=== PATIENT | female | born 1985 | race African-American/Black ===

== ENCOUNTER → 2018-02-15 | Outpatient (CLI) | payer OTHER ==
--- NOTE | 2018-02-15 12:08 | RAD ---
History: Mid to low back pain Study: Lumbar spine two views Findings: AP and lateral views the lumbar spine demonstrate normal alignment and disc spacing. No fra cture or bony destructive process is identified. Impression: Normal lumbar spine.
--- NOTE | 2018-02-15 17:00 | RAD ---
Exam: Thoracic spine AP and lateral views History: 32-year-old female with back pain. Comparison: None Findings: Very mild levo scoliotic curvature of the mid thoracic spine is present. However on the lat eral view, there is no evidence of vertebral body offset. Thoracic disc spaces are maintained, as are the vertebral body heights. No acute bony abnormality or significant degenerative change is seen on this exam. Impression: Minimal levoscoliotic curvature of the mid thoracic spine. Otherwise negative exam. Reported By:
== END ==
LOC: LAB 09:38
PROVIDERS: ATTEND Nurse Practitioner Family
DX: M54.5 Low back pain (principal); M54.6 Pain in thoracic spine
CPT/HCPCS: 72072; 72100

== ENCOUNTER → 2018-02-18 | Outpatient (CLI) | payer OTHER ==
[2018-02-18 12:12] LABS: BASOPHILS # (AUTO) 0.1 X10^3/uL (0.0-0.1); BASOPHILS % (AUTO) 1.6 % (0.2-1.0); EOSINOPHILS # (AUTO) 0.1 x10^3/uL (0.0-0.2); HEMOGLOBIN 13.2 g/dL (12.0-16.0); LYMPHOCYTES % (AUTO) 29.7 % (21.0-51.0); MEAN CORPUSCULAR HEMOGLOBIN 29.6 pg (27.0-34.0); MEAN CORPUSCULAR HGB CONC 33.8 g/dL (33.0-35.0); MEAN CORPUSCULAR VOLUME 87.7 fL (80.0-100.0); MONOCYTES # (AUTO) 0.6 x10^3/uL (0.3-0.8); MONOCYTES % (AUTO) 8.5 % (0.0-13.0); NEUTROPHILS % (AUTO) 59.2 % (42.0-75.0); PLATELET COUNT 306 X10^3/uL (150.0-450.0); RED BLOOD COUNT 4.45 X10^6/uL (3.5-5.4); RED CELL DISTRIBUTION WIDTH 13.2 % (11.6-16.5); WHITE BLOOD COUNT 6.7 X10^3/uL (3.6-10.0)
[2018-02-18 12:16] LABS: ALANINE AMINOTRANSFERASE 23 Units/L (12-78); ALKALINE PHOSPHATASE 116 Units/L (46-116); ASPARTATE AMINO TRANSFERASE 10 Units/L (15-37); BLOOD UREA NITROGEN 11 mg/dL (7-18); CALCIUM 8.6 mg/dL (8.5-10.1); CARBON DIOXIDE 29.3 mmol/L (21-32); CHLORIDE 107 mmol/L (98-107); CREATININE 0.78 mg/dL (0.55-1.02); SODIUM 144 mmol/L (136-145); TOTAL PROTEIN 7.8 g/dL (6.4-8.2); eGFR BLACK RACES > 60 (>60); eGFR NON BLACK RACES > 60 (>60)
[2018-02-18 12:58] LABS: ERYTHROCYTE SEDIMENTATION RATE 8 MM/HOUR (0-20)
== END ==
LOC: LAB 11:44
PROVIDERS: ATTEND Nurse Practitioner Family
DX: M54.5 Low back pain (principal); M54.6 Pain in thoracic spine
CPT/HCPCS: 36415; 80053; 85025; 85652; 86140

== ENCOUNTER → 2018-02-28 | Outpatient (CLI) | payer OTHER ==
--- NOTE | 2018-03-01 10:10 | RAD ---
History: Fall and hit right-sided head Study: Skull series Findings: Multiple views of the skull demonstrates normal size and bony density. No fracture or intra cranial calcifications are seen. Impression: Normal skull. Reported By:
== END ==
LOC: RAD 17:50
PROVIDERS: ATTEND Nurse Practitioner Family
DX: S09.90XA Unspecified injury of head, initial encounter (principal); X58.XXXA Exposure to other specified factors, initial encounter
CPT/HCPCS: 70260

== ENCOUNTER → 2018-03-02 | Outpatient (CLI) | payer OTHER ==
--- NOTE | 2018-03-02 10:25 | RAD ---
Examination: X-rays of the cervical spine. Clinical History: Neck pain after falling in tub 2 weeks ago. Technique: Three views of the cervical spine were obtained. Comparison: None available. Findings: There is loss of the normal cervical lordosis. The intervertebral disc spaces are well maintained. No arthropathy is noted. No acute fracture, dislocation or destructive bony lesion is noted. No soft tissue abnormality is noted. Impression: 1. No acute fracture or dislocation. 2. Loss of the normal cervical lordosis. Reported By:
== END ==
LOC: RAD 08:09
PROVIDERS: ATTEND Nurse Practitioner Family
DX: M54.2 Cervicalgia (principal)
CPT/HCPCS: 72040

== ENCOUNTER → 2018-03-08 | Outpatient (CLI) | payer OTHER ==
--- NOTE | 2018-03-08 13:38 | CT ---
HISTORY: Headache status post fall. Study: CT brain without contrast Comparison: None available. Technique: Multiple axial images of the brain were obtained from the skull base to the vertex without administra tion of IV contrast. Dose reduction techniques including Automated Exposure Control (AEC) and adjust ment of mA and kV were utilized. Findings: No acute intraparenchymal hemorrhage or mass can be identified. No extra-axial fluid collections are seen. No alteration in the attenuation of the brain parenchyma can be identified to suggest acute o r subacute ischemic change. The ventricular system is symmetric and nondilated. The extracranial st ructures are grossly unremarkable. IMPRESSION: No acute intracranial pathology. Reported By:
== END ==
LOC: RAD 12:42
PROVIDERS: ATTEND Nurse Practitioner Family
DX: M54.2 Cervicalgia (principal); S09.90XA Unspecified injury of head, initial encounter; X58.XXXA Exposure to other specified factors, initial encounter
CPT/HCPCS: 70450

== ENCOUNTER → 2018-03-17 | Outpatient (CLI) | payer OTHER ==
[2018-03-17 11:03] LABS: SERUM PREGNANCY TEST, QUAL NEGATIVE <10 mIU/mL
== END ==
LOC: LAB 07:58
PROVIDERS: ATTEND Nurse Practitioner Family
DX: N92.5 Other specified irregular menstruation (principal)
CPT/HCPCS: 36415; 82627; 82670; 84144; 84270; 84402; 84403; 84703

== ENCOUNTER 2018-04-04 12:12 | Emergency (ER) | payer OTHER ==
[2018-04-04 12:24] VITALS: BP 121/63; BMI 24.7
--- NOTE | 2018-04-04 12:39 | DR.CP ---
HPI - Time Seen Time seen: 12:25 - PCP Primary Care Physician: ED REBOLLEDO - HPI Comment HPI Comment: PAIN WORSE TODAY. SEND TO ED FROM PCP OFFICE. DENIES FEVER. - Complaint Chief Complaint Doctor Comments: ABDOMINAL PAIN, CHEST PAIN TIMES Chief Complaint:: PT C/O LASTNIGHT I STARTED HAVING BAD CHEST PAINS AND THAT SHE WENT TO SEE LESA MCCORD TODAY AND SHE TOLD ME TO COME TO THE ER,,,BR Self Treatment fo Chief Complaint: NONE - Reviewed Nurses Notes Review: Yes - Source History Provided: Patient - Mode of Arrival Mode of Arrival: Ambulatory - Timing Onset of Chief Complaint: 04/03/18 Came on: Suddenly - Duration Duration: Constant Duration: Days - Location Location of Chest Pain: Chest Chest Pain Radiation Location: Left Arm - Context Onset: At rest Cardiac Risk Factors: None PE Risk Factors: None History of: None Prehospital Care: None - Quality Quality: Sharp, Heavy - Severity Severity: Moderate - Modifying Factors Worsens: Coughing, Movement - Associated Signs and Symptoms Associated Signs and Symptoms: None PMH - PMH Past Medical History: No Past Surgical History: Yes Past Surgical History Comment: ,,, - Family History History of Family Medical Conditions: No - Social History Does patient currently use any type of tobacco product: No Have you used tobacco products in the last 12 months: No Type of Tobacco Use: None Does any household member use tobacco: No Alcohol Use: None Do you use any recreational Drugs:: No Lives With: Family Lives Where: Home - infectious screening In the last 2 months have you had wt loss of >10#?: NO Have you had fever, night sweats or hemotysis?: No Have you traveled outside the country in the last 6 months?: No Isolation: Standard ROS - Review of Systems Constitutional: Weakness, Fatigue. negative: Chills, Fever Eyes: No Symptoms Reported. negative: Eye Pain, Discharge ENTM: No Symptoms Reported. negative: Ear Pain, Nose Discharge, Nose Congestion , Throat Pain Respiratoy: No Symptoms Reported, Short of Breath. negative: Productive Cough, Non-Productive Cough, Wheezing, Hemoptysis Cardiovascular: Chest Pain. negative: Edema, Palpitations Gastrointestinal/Abdominal: Abdominal Pain, Nausea. negative: Constipation, Diarrhea, Vomiting Genitourinary: No Symptoms Reported. negative: Dysuria, Frequency, Hematuria Neurological: Weakness. negative: Headache, Dizziness Musculoskeletal: No Symptoms Reported Integumentary: No Symptoms Reported Hematologic/Lymphatic: No Symptoms Reported Endocrine: No Symptoms Reported All Other Systems: Reviewed and Negative PE - Vitals Vitals: Temperature 98.0 F Pulse Rate 77 Respiratory Rate 20 Blood Pressure 121/63 O2 Sat by Pulse Oximetry 100 - General Limitations: No Limitations General Appearance: Alert - Head Head Exam: Normal Inspection - Eyes Eye exam: Normal Appearance - ENT ENT Exam: Normal External Ear Exam - Chest Chest Inspection: Symmetric Chest Wall Rise - Respiratory Respiratory Exam: Normal Lung Sounds Bilat Respiratory Exam: Bilateral Clear to Auscultation - Cardiovascular Cardiovascular Exam: Regular Rate, Normal Rhythm, Normal Heart Sounds Pulse: Normal, Radial, Femoral Edema: Normal - Abdominal Exam Abdominal Exam: Normal Bowel Sounds, Soft, Tenderness Abdominal Tenderness: LLQ, Diffuse, Moderate - Extremities Extremities Exam: Normal Inspection - Back Back Exam: Normal Inspection - Neurologic Neurological Exam: Alert, Oriented X3 - Psychiatric Psychiatric Exam: Normal Affect, Normal Mood - Skin Skin Exam: Normal Color MDM - Differential Diagnosis Differential Diagnosis: Chest Wall Pain, Cholelithasis, Costochondritis, Esophageal Reflux/Spasm, Gastritis, Pericarditis, Pleuritis, Pancreatitis, Pneumonia, Pneumothorax, Pulmonary Embolus Course - Treatment Treatment: SEE ORDERS. - Education/Counseling Education/Counseling: Patient, Education Educated On: Diagnosis, Needs for Follow Up ROR - Labs Reviewed Laboratory Results Reviewed?: Yes Result Diagrams: 04/04/18 12:47 04/04/18 12:47 Laboratory: WBC 4.8 X10^3/uL (3.6-10.0) 04/04/18 12:47 RBC 3.96 X10^6/uL (3.5-5.4) 04/04/18 12:47 Hgb 11.9 g/dL (12.0-16.0) L 04/04/18 12:47 Hct 35.4 % (36.0-47.0) L 04/04/18 12:47 MCV 89.4 fL (80.0-100.0) 04/04/18 12:47 MCH 29.9 pg (27.0-34.0) 04/04/18 12:47 MCHC 33.5 g/dL (33.0-35.0) 04/04/18 12:47 RDW 12.9 % (11.6-16.5) 04/04/18 12:47 Plt Count 255 X10^3/uL (150.0-450.0) 04/04/18 12:47 MPV 7.6 fL (7.4-11.0) 04/04/18 12:47 Neut % (Auto) 58.0 % (42.0-75.0) 04/04/18 12:47 Lymph % (Auto) 31.9 % (21.0-51.0) 04/04/18 12:47 [place] % (Auto) 8.6 % (0.0-13.0) 04/04/18 12:47 Eos % (Auto) 0.6 % (0.9-2.9) L 04/04/18 12:47 Baso % (Auto) 0.9 % (0.2-1.0) 04/04/18 12:47 Neut # (Auto) 2.8 x10^3/uL (2.2-4.8) 04/04/18 12:47 Lymph # (Auto) 1.5 X10^3/uL (1.3-2.9) 04/04/18 12:47 [place] # (Auto) 0.4 x10^3/uL (0.3-0.8) 04/04/18 12:47 Eos # (Auto) 0.0 x10^3/uL (0.0-0.2) 04/04/18 12:47 Baso # (Auto) 0.0 X10^3/uL (0.0-0.1) 04/04/18 12:47 Absolute Nucleated RBC 0.0 /100WBC 04/04/18 12:47 D-Dimer < 100 ng/mL (0-400) 04/04/18 12:47 Sodium 141 mmol/L (136-145) 04/04/18 12:47 Corrected Sodium TNP 04/04/18 12:47 Potassium 3.9 mmol/L (3.5-5.1) 04/04/18 12:47 Chloride 107 mmol/L (98-107) 04/04/18 12:47 Carbon Dioxide 26.6 mmol/L (21-32) 04/04/18 12:47 BUN 7 mg/dL (7-18) 04/04/18 12:47 Creatinine 0.65 mg/dL (0.55-1.02) 04/04/18 12:47 Est GFR (MDRD) Af Amer > 60 (>60) 04/04/18 12:47 Est GFR (MDRD) Non-Af > 60 (>60) 04/04/18 12:47 Glucose 92 mg/dL (65-99) 04/04/18 12:47 Calcium 8.5 mg/dL (8.5-10.1) 04/04/18 12:47 Corrected Calcium TNP 04/04/18 12:47 Total Bilirubin 0.40 mg/dL (0.2-1.0) 04/04/18 12:47 AST 10 Units/L (15-37) L 04/04/18 12:47 ALT 18 Units/L (12-78) 04/04/18 12:47 Alkaline Phosphatase 80 Units/L (46-116) 04/04/18 12:47 Creatine Kinase 54 Units/L (26-192) 04/04/18 12:47 CK-MB (CK-2) < 1.0 ng/mL (0-4.0) 04/04/18 12:47 CK/CKMB % Calc 1.9 % (<4) 04/04/18 12:47 Troponin I < 0.02 ng/mL (0-1.5) 04/04/18 12:47 Total Protein 6.8 g/dL (6.4-8.2) 04/04/18 12:47 Albumin 3.6 g/dL (3.4-5.0) 04/04/18 12:47 Globulin 3.2 g/dL (2.5-4.5) 04/04/18 12:47 Albumin/Globulin Ratio 1.1 Ratio (1.1-2.1) 04/04/18 12:47 HCG, Qual Negative <10 mIU/mL 04/04/18 12:47 Specimen Type Clean catch urine 04/04/18 13:28 Urine Color Yellow (YELLOW) 04/04/18 13:28 Urine Appearance Slightly hazy (CLEAR) 04/04/18 13:28 Urine pH 5.0 (5.0 - 8.0) 04/04/18 13:28 Ur Specific [place] 1.025 (1.000-1.030) 04/04/18 13:28 Urine Protein 2+ (NEGATIVE) 04/04/18 13:28 Urine Glucose (UA) Negative (NEGATIVE) 04/04/18 13:28 Urine Ketones Negative (NEGATIVE) 04/04/18 13:28 Urine Occult Blood 5+ (NEGATIVE) 04/04/18 13:28 Urine Nitrite Negative (NEGATIVE) 04/04/18 13:28 Urine Bilirubin Negative (NEGATIVE) 04/04/18 13:28 Urine Urobilinogen 1+ (NORMAL) 04/04/18 13:28 Ur Leukocyte Esterase 1+ (NEGATIVE) 04/04/18 13:28 Urine RBC 20-30 /HPF (NONE SEEN) 04/04/18 13:28 Urine WBC 0-2 /HPF (NONE SEEN) 04/04/18 13:28 Ur Squamous Epith Cells Rare /HPF (NEGATIVE) 04/04/18 13:28 Urine Bacteria Trace /HPF (NEGATIVE) 04/04/18 13:28 Urine Mucus Many /HPF (NEGATIVE) 04/04/18 13:28 Ur Culture Indicated? No/not indicated 04/04/18 13:28 H. pylori IgG Antibody Negative (NEGATIVE) 04/04/18 12:47 - XRAY XRAY Interpreted by: Radiologist XRAY Findings: REPORT DISCUSS WITH PATIENT. - EKG Rhythm: NSR (EKG NOTED) - Diagnosis Discharge Problem: Abdominal pain Qualifiers: Abdominal location: generalized Qualified Code(s): R10.84 - Generalized abdominal pain Chest pain Qualifiers: Chest pain type: unspecified Qualified Code(s): R07.9 - Chest pain, unspecified - Discharge Plan Disposition: 01 HOME, SELF-CARE Condition: Stable Prescriptions: Ibuprofen [MOTRIN TAB 600 MG *] 600 mg PO TID PRN #30 tab PRN Reason: Pain/Inflammation Ranitidine HCl [ZANTAC TAB 150 MG *] 150 mg PO BID #60 tab - Follow ups/Referrals Follow ups/Referrals: N[facility],None [Primary Care Provider] - 3 days - Instructions Instructions: Chest Wall Pain, Ctol-ve-Ddnt, Abdominal Pain, Adult, Easy-to- Read, Chest Pain Observation Additional Instructions: RETURN TO ED IF WORSE.
[2018-04-04 13:13] LABS: BASOPHILS % (AUTO) 0.9 % (0.2-1.0); EOSINOPHILS % (AUTO) 0.6 % (0.9-2.9); HEMATOCRIT 35.4 % (36.0-47.0); HEMOGLOBIN 11.9 g/dL (12.0-16.0); LYMPHOCYTES # (AUTO) 1.5 X10^3/uL (1.3-2.9); LYMPHOCYTES % (AUTO) 31.9 % (21.0-51.0); MEAN CORPUSCULAR HEMOGLOBIN 29.9 pg (27.0-34.0); MEAN CORPUSCULAR HGB CONC 33.5 g/dL (33.0-35.0); MEAN CORPUSCULAR VOLUME 89.4 fL (80.0-100.0); MEAN PLATELET VOLUME 7.6 fL (7.4-11.0); MONOCYTES # (AUTO) 0.4 x10^3/uL (0.3-0.8); MONOCYTES % (AUTO) 8.6 % (0.0-13.0); NEUTROPHILS # (AUTO) 2.8 x10^3/uL (2.2-4.8); PLATELET COUNT 255 X10^3/uL (150.0-450.0); RED BLOOD COUNT 3.96 X10^6/uL (3.5-5.4); RED CELL DISTRIBUTION WIDTH 12.9 % (11.6-16.5); WHITE BLOOD COUNT 4.8 X10^3/uL (3.6-10.0)
--- NOTE | 2018-04-04 13:27 | RAD ---
HISTORY: Abdominal pain Study: Flat and upright abdomen PA chest Comparison: None Findings: The abdominal gas pattern is nonspecific and nonobstructive. No pneumoperitoneum is identified. No ab normal masses or abnormal calcifications are identified. The chest is clear. IMPRESSION: Unremarkable abdominal series Reported By:
[2018-04-04 13:34] LABS: ALANINE AMINOTRANSFERASE 18 Units/L (12-78); ALBUMIN 3.6 g/dL (3.4-5.0); ALKALINE PHOSPHATASE 80 Units/L (46-116); ASPARTATE AMINO TRANSFERASE 10 Units/L (15-37); BLOOD UREA NITROGEN 7 mg/dL (7-18); CALCIUM 8.5 mg/dL (8.5-10.1); CARBON DIOXIDE 26.6 mmol/L (21-32); CHLORIDE 107 mmol/L (98-107); CKMB % 1.9 % (<4); CREATINE KINASE 54 Units/L (26-192); CREATINE KINASE MB < 1.0 ng/mL (0-4.0); CREATININE 0.65 mg/dL (0.55-1.02); SODIUM 141 mmol/L (136-145); TOTAL PROTEIN 6.8 g/dL (6.4-8.2); TROPONIN I < 0.02 ng/mL (0-1.5); eGFR BLACK RACES > 60 (>60); eGFR NON BLACK RACES > 60 (>60)
[2018-04-04 13:37] LABS: BILIRUBIN,URINE NEGATIVE (NEGATIVE); BLOOD/HEMOGLOBIN,URINE 5+ (NEGATIVE); GLUCOSE, URINE NEGATIVE (NEGATIVE); KETONES,URINE NEGATIVE (NEGATIVE); LEUKOCYTE ESTERASE ,URINE 1+ (NEGATIVE); NITRITES,URINE NEGATIVE (NEGATIVE); PROTEIN,URINE 2+ (NEGATIVE); UROBILINOGEN,URINE 1+ (NORMAL)
[2018-04-04 13:47] LABS: APPEARANCE,URINE SLIGHTLY HAZY (CLEAR); BACTERIA,URINE TRACE /HPF (NEGATIVE); COLOR,URINE YELLOW (YELLOW); MUCUS,URINE MANY /HPF (NEGATIVE); RBC,URINE 20-30 /HPF (NONE SEEN); SQUAMOUS EPITHELIAL CELL,UR RARE /HPF (NEGATIVE)
[2018-04-04 14:40] LABS: SERUM PREGNANCY TEST, QUAL NEGATIVE <10 mIU/mL
== END 2018-04-04 14:25 | disposition home or self-care (01) ==
LOC: ER 12:30
DX: R07.89 Other chest pain (principal); R10.84 Generalized abdominal pain
CPT/HCPCS: 36415; 74022; 80053; 81001; 82550; 82553; 84484; 84703; 85025; 85378; 86677; 99282; 99283